=== PATIENT | male | born 1990 | race Two or more races ===

== ENCOUNTER 2025-03-19 16:19 | Emergency (ER) | payer OTHER ==
[~2025-03-19] VITALS: Ht 180.3 cm; Wt 72.1 kg
[2025-03-19] MEDS ORDERED: GUAIFENESIN/DEXTROMETHORPHAN 100MG/10ML BLIST.PACK PO ONE ×2 (17:30→17:33)
[2025-03-19 17:50] LABS: BASO % 0.4 % (0.1-1.2); EOS # 0.31 (0.04-0.54); EOS % 3.6 % (0.7-7.0); LYMPH # 1.54 (1.18-3.74); LYMPH % 18.0 % (19.3-53.1); MEAN PLATELET VOLUME 10.00 fl (9.4-12.4); MONO # 1.02 (0.24-0.82); MONO % 11.9 % (4.7-12.5); NEUT # 5.65 (1.56-6.13); NEUT % 66.0 % (34.0-71.1); RED CELL DISTRIBUTION WIDTH 12.4 % (11.6-14.4)
[2025-03-19 18:21] LABS: COVID-19 AG NEGATIVE (NEGATIVE)
[2025-03-19] MEDS ORDERED: TUSSIN DM LIQU118 ML PO (18:42)
[2025-03-19] MEDS ORDERED: ZYRTEC10 MG PO (18:42)
== END 2025-03-19 18:54 ==
LOC: ER 17:41
PROVIDERS: Emergency Medicine
DX: J06.9 Acute upper respiratory infection, unspecified (principal); J00 Acute nasopharyngitis [common cold]; Z20.822 Contact with and (suspected) exposure to COVID-19; Z91.011 Allergy to milk products

== ENCOUNTER 2025-03-22 13:05 | Emergency (ER) | payer OTHER ==
[~2025-03-22] VITALS: Ht 182.9 cm; Wt 71.7 kg
[~2025-03-22 13:05] MED LIST: TUSSIN DM LIQU118 ML PO; ZYRTEC10 MG PO
[2025-03-22 13:36] VITALS: BP 127/68; O2SAT 98
[2025-03-22] MEDS ORDERED: METHYLPREDNISOLONE SOD SUCC 40 MG VIAL IV STA (15:26)
[2025-03-22] MEDS ORDERED: DIPHENHYDRAMINE HCL 50 MG/ML VIAL 1ML IM STA (15:27)
[2025-03-22] MEDS ORDERED: DIPHENHYDRAMINE HCL 50 MG/ML VIAL 1ML ONE (15:34)
[2025-03-22] MEDS ORDERED: METHYLPREDNISOLONE SOD SUCC 40 MG VIAL ONE (15:34)
[2025-03-22 16:00] LABS: BASO % 0.3 % (0.1-1.2); EOS # 0.56 (0.04-0.54); EOS % 5.9 % (0.7-7.0); LYMPH # 2.54 (1.18-3.74); LYMPH % 26.6 % (19.3-53.1); MEAN PLATELET VOLUME 10.20 fl (9.4-12.4); MONO # 0.57 (0.24-0.82); MONO % 6.0 % (4.7-12.5); NEUT # 5.82 (1.56-6.13); NEUT % 61.0 % (34.0-71.1); RED CELL DISTRIBUTION WIDTH 12.6 % (11.6-14.4)
[2025-03-22 16:04] LABS: ERYTHROCYTE SEDIMENTATION RATE 9 mm/hr (0-15)
[2025-03-22 16:31] LABS: ALT/SGPT 93.0 U/L (12-78); AST/SGOT 48.0 U/L (15-37); BILIRUBIN TOTAL 0.71 mg/dL (0.3-1.2); BUN CREA RATIO 13.0 (7.0-25.0); CREATININE SERUM 1.14 mg/dL (0.70-1.30); GFR 72.68; GLOBULINA 3.4 G/DL (2.4-3.5); GLUCOSE FASTING 88.0 mg/dL (65-100); OSMOLALITY SERUM 281.0 MOSM/KG (275-295)
== END 2025-03-22 17:20 | disposition home or self-care (01) ==
LOC: ER 13:05
PROVIDERS: General Practice
DX: L53.8 Other specified erythematous conditions (principal); Z91.011 Allergy to milk products